=== PATIENT | female | born 1930 | race Two or more races ===

== ENCOUNTER 2019-12-06 21:40 | Emergency (ER) | payer MEDICARE, OTHER ==
[~2019-12-06] VITALS: Ht 162.6 cm; Wt 57.6 kg
--- NOTE | 2019-12-06 21:57 | NUR ---
PT BIBSON C/O R KNEE PAIN & SWELLING S/P GLF 2DAYS AGO. NOTED FACIAL ABRASION, HEMATOMA. PT DENOES KO. PT AAOX4, VSS, RR EVEN AND UNLABORED ON RA W/ NAD NOTED. PT CONNECTED TO THE MONITOR AND POX
--- NOTE | 2019-12-06 22:05 | NUR ---
PT TAKEN TO CT
[2019-12-06] MEDS ORDERED: ACETAMINOPHEN 325 MG TABLET PO ONE (22:30)
[2019-12-06] MEDS ORDERED: TDAP [DIPH/PERTUSSIS/TET] 0.5 ML VIAL IM ONE ×2 (22:30→22:37)
--- NOTE | 2019-12-06 22:30 | NUR ---
PT BACK FROM CT
[2019-12-06] MEDS ORDERED: ACETAMINOPHEN 325 MG TABLET ONE (22:37)
--- NOTE | 2019-12-06 23:19 | NUR ---
XRAY AT BEDSIDE
--- NOTE | 2019-12-07 00:02 | NUR ---
Patient discharged to home in stable condition. Written and verbal after care instructions given. Patient verbalizes understanding of instruction.
[2019-12-07 00:03] VITALS: BP 133/78
== END 2019-12-07 00:04 | disposition home or self-care (01) ==
LOC: ER 21:42
DX: S80.01XA Contusion of right knee, initial encounter (principal); S00.31XA Abrasion of nose, initial encounter; S09.8XXA Other specified injuries of head, initial encounter; W18.39XA Other fall on same level, initial encounter; Y93.89 Activity, other specified; Y92.89 Other specified places as the place of occurrence of the external cause; Y99.8 Other external cause status
CPT/HCPCS: 70450-TC; 73130-TC; 73564-TC; 90715